=== PATIENT | female | born 1965 | race Hispanic/Latino ===

== ENCOUNTER 2018-09-01 04:29 | Emergency (ER) | payer MEDICARE ==
[~2018-09-01 04:29] MED LIST: AMIO200T5 PO; COLC0.6T67 PO; GABA-531 PO; HYDR-4068 PO; POLYETHYLENE GLYCOL PO; TIZA4CAP8 PO
== END 2018-09-01 04:58 | disposition left against medical advice (07) ==
LOC: EDH 04:29

== ENCOUNTER 2018-10-30 20:32 | Inpatient (IN) | payer MEDICARE | END 2018-11-01 18:25 | disposition home or self-care (01) | LOC: EDH 20:32 → EDHIP 10-31 01:00 → 4CH 10-31 08:15 | DX: I48.0 Paroxysmal atrial fibrillation (principal); I31.4 Cardiac tamponade; M79.7 Fibromyalgia ==

== ENCOUNTER 2018-11-25 20:43 | Emergency (ER) | payer MEDICARE ==
[~2018-11-25 20:43] MED LIST changes: -AMIO200T5 PO; -COLC0.6T67 PO; -GABA-531 PO; +METO25TA6 PO; +MODA200T48 PO; -POLYETHYLENE GLYCOL PO; -TIZA4CAP8 PO
[2018-11-25 21:16] LABS: BASOPHILS % (AUTO) 0.4 % (0.0-5.0); EOSINOPHILS % (AUTO) 0.2 % (0.0-8.0); HEMATOCRIT 36.9 % (36-48); MEAN CORPUSCULAR HEMOGLOBIN 33.3 pg (27.0-33.0); MEAN CORPUSCULAR HGB CONC 34.4 g/dL (32.0-36.0); MONOCYTES % (AUTO) 4.1 % (3.0-13.0); NEUTROPHILS % (AUTO) 84.3 % (40.0-77.0); PLATELET COUNT (AUTO) 231 K/uL (130-400); RED BLOOD CELL COUNT(AUTO) 3.81 MIL/uL (4.00-5.50); RED CELL DISTRIBUTION WIDTH 11.7 % (11.0-15.5); WHITE BLOOD COUNT (AUTO) 9.3 K/uL (4.8-10.8)
[2018-11-25 21:23] LABS: POTASSIUM 3.6 mmol/L (3.5-5.1)
[2018-11-25 21:27] LABS: ALBUMIN 3.6 g/dL (3.5-5.0); BILIRUBIN,TOTAL 0.2 mg/dL (0.2-1.0); TOTAL PROTEIN, SERUM 6.9 g/dL (6.0-8.3)
[2018-11-25] MEDS ORDERED: DILTIAZEM HCL 125 MG/25 ML VIAL IV ONE (21:36)
[2018-11-25] MEDS ORDERED: DILTIAZEM HCL 5 MG/ML 10 ML VIAL IV ONE (21:37)
[2018-11-25 22:06] LABS: AMPHET/METH SCREEN,URINE NEGATIVE (NEGATIVE); BARBITURATE SCREEN, URINE NEGATIVE (NEGATIVE); BENZODIAZEPINES SCREEN,URINE NEGATIVE (NEGATIVE); CANNABINOID SCREEN,URINE NEGATIVE (NEGATIVE); COCAINE SCREEN,URINE NEGATIVE (NEGATIVE); OPIATE SCREEN,URINE POSITIVE (NEGATIVE); PHENCYCLIDINE SCREEN,URINE NEGATIVE (NEGATIVE)
== END 2018-11-25 23:17 | disposition home or self-care (01) ==
LOC: EDH 20:43
DX: I48.0 Paroxysmal atrial fibrillation (principal); Z95.0 Presence of cardiac pacemaker; Z90.710 Acquired absence of both cervix and uterus; Z98.890 Other specified postprocedural states
CPT/HCPCS: 36415; 71045; 80053; 80305; 82550; 83735; 83880; 84484; 85025; 93005 ×2; 96374; 99285; J3490

== ENCOUNTER 2019-01-24 09:27 | Observation (INO) | payer MEDICARE ==
[2019-01-22 15:11] VITALS: BP 120/70
[2019-01-22 15:13] LABS: BASOPHILS % (AUTO) 0.7 % (0.0-5.0); HEMATOCRIT 37.3 % (36-48); LYMPHOCYTES % (AUTO) 22.9 % (21.0-51.0); MEAN CORPUSCULAR HEMOGLOBIN 32.2 pg (27.0-33.0); MEAN CORPUSCULAR HGB CONC 33.4 g/dL (32.0-36.0); MEAN CORPUSCULAR VOLUME 96.3 fL (79-99); NEUTROPHILS % (AUTO) 70.4 % (40.0-77.0); PLATELET COUNT (AUTO) 462 K/uL (130-400); RED BLOOD CELL COUNT(AUTO) 3.87 MIL/uL (4.00-5.50); RED CELL DISTRIBUTION WIDTH 12.1 % (11.0-15.5); WHITE BLOOD COUNT (AUTO) 7.4 K/uL (4.8-10.8)
[2019-01-22 15:26] LABS: CREATININE 0.8 mg/dL (0.5-1.5); POTASSIUM 4.1 mmol/L (3.5-5.1)
[2019-01-22 15:30] LABS: INR 0.96 (0.85-1.15); PARTIAL THROMBOPLASTIN TIME 33.2 SEC (26.3-35.5); PROTHROMBIN TIME 10.1 SEC (9.6-11.6)
--- NOTE | 2019-01-22 16:39 | NUR ---
HYDROCODONE PT CONCERNED ABOUT BACK PAIN. USES HYDROCODONE EVERY 4 HOURS[address] INFORMED FANI HE [address] DR. LAYTON OFFICE. PER DR. GUSTAFOSN, PT CAN USE HYDROCODONE SHE NORMALLY TAKES AT HOME. CALLED AND INFORMED PT. VERBALIZED UNDERSTANDING.
--- NOTE | 2019-01-23 11:07 | NUR ---
PLATELETS INFORMED DR. GUSTAFSON OF ABNORMAL PLATELETS. NO ORDERS RECEIVED. PROCEED WITH PLANNED PROCEDURE.
[2019-01-24] VITALS (10 sets, daily range): BP systolic 91–119; BP diastolic 60–78
[~2019-01-24] VITALS: Ht 172.7 cm; Wt 69.7 kg
[2019-01-24] MEDS: CEFAZOLIN SODIUM 1 GM VIAL IVP SCH (05:00)
[~2019-01-24 09:27] MED LIST changes: +DICL1ADH12 TD; -METO25TA6 PO; -MODA200T48 PO
[2019-01-24] MEDS ORDERED: SODIUM CHLORIDE 0.9% 1000ML 1,000 ML IV ONE (10:57)
--- NOTE | 2019-01-24 11:50 | NUR ---
PT TRANSFERRED: PATIENT TAKEN TO PLANT ACCOUNTANT VIA STRETCHER BY ROCKY PARSON
[2019-01-24] MEDS ORDERED: BUPIVACAINE/PF 0.25% 30ML VIAL IJ ONE (11:53)
[2019-01-24] MEDS ORDERED: CEFAZOLIN SODIUM 1 GM VIAL ONE (11:53)
[2019-01-24] MEDS ORDERED: MEPERIDINE-PF 25 MG/ML SYG ONE ×6 (11:53→13:20)
[2019-01-24] MEDS ORDERED: MIDAZOLAM HCL 1 MG/ML 2ML VIAL ONE ×6 (11:54→13:21)
[2019-01-24] MEDS ORDERED: LIDOCAINE HCL 1% MDV 50ML VIAL ONE (11:54)
[2019-01-24] MEDS ORDERED: IODIXANOL 320 MG/ML 100 ML VIAL ONE (12:41)
[2019-01-24] MEDS ORDERED: HYDROCODONE/ACETAMINOPHEN 10/325 MG TAB PO PRN ×2 (14:00→14:45)
[2019-01-24] MEDS ORDERED: METO-408 PO (14:06)
--- NOTE | 2019-01-24 14:25 | NUR ---
POST PROCEDURE RECEIVED PT FROM RELIEF DOCKING MASTER, IN SEMI LYONS'S POSITION, A&OX3, CALM COOPERATIVE AND DOES NOT APPEAR TO BE IN ANY DISTRESS NOR ANY NEURO DEFICITS PRESENT. RIGHT SHOULDER DRESSING DRY, INTACT AND SECURED WITH ARM SLING. PULSES AND SHAREPOINT DEVELOPER STRENGTH STRONG TO ALL EXTREMITIES. PT DOES C/O CHRONIC BACK PAIN AND INCISIONAL DISCOMFORT, BOTH 6/10, PT ON BEDREST FOR 4 HOURS. CALL LIGHT WITHIN REACH, FAMILY AT BEDSIDE.
--- NOTE | 2019-01-24 19:30 | NUR ---
Received report from nurse Posey,pt S/P PPM incision site is clean dry and intact with Right arm sling on.Pt is educated regarding right arm precaution.
[2019-01-24] MEDS: HYDROCODONE/ACETAMINOPHEN 10/325 MG TAB PO PRN (20:13)
[2019-01-25 03:00] VITALS: BP 126/78
[2019-01-25] MEDS: CEFAZOLIN SODIUM 1 GM VIAL IVP SCH (04:40)
--- NOTE | 2019-01-25 07:30 | NUR ---
ASSESSMENT ENCOUNTERED PT ASLEEP BUT AROUSEABLE, A&OX3, CALM COOPERATIVE AND DOES NOT APPEAR TO BE IN ANY DISTRESS NOR ANY NEURO DEFICITS PRESENT. PT DOES C/O INCISIONAL PAIN AND CHRONIC BACK PAIN, RT SHOULDER DRESSING DRY, INTACT AND SECURED WITH ARM SLING. PULSES AND TURKISH RUBBER STRENGTH STRONG WITH ALL EXTREMITIES. PT IS AMBULATORY, GAIT SLOW BUT STEADY WITH STAND BY ASSIST. CALL LIGHT WITHIN REACH, FAMILY AT BEDSIDE.
[2019-01-25 07:50] VITALS: BP 101/59
[2019-01-25] MEDS ORDERED: DICLOFENAC PO PRN (09:00)
[2019-01-25] MEDS: HYDROCODONE/ACETAMINOPHEN 10/325 MG TAB PO PRN (10:50)
[2019-01-25 11:49] VITALS: BP 115/76
--- NOTE | 2019-01-25 15:00 | NUR ---
DISCHARGE INSTRUCTIONS GIVEN, PIV REMOVED AND INTACT, DISCHARGED HOME TO FAMILY VEHICLE VIA WHEELCHAIR.
== END 2019-01-25 15:36 | disposition home or self-care (01) ==
LOC: DAH 09:27 → DAHIP 09:28 → 2AH 14:31
PROVIDERS: ADMIT Internal Medicine; ATTEND Internal Medicine
DX: I49.5 Sick sinus syndrome (principal); I48.0 Paroxysmal atrial fibrillation; I42.8 Other cardiomyopathies; I50.22 Chronic systolic (congestive) heart failure; Z79.899 Other long term (current) drug therapy
CPT/HCPCS: 33208; 36415; 71045; 80048; 85025; 85610; 85730; A4606; C1785; C1898 ×2; G0378 ×26; J0690; J2175 ×5; J2250 ×5; J3490 ×2; J7030; Q9967; 99156; 99157

== ENCOUNTER 2019-04-10 23:24 | Emergency (ER) | payer MEDICARE ==
[~2019-04-10 23:24] MED LIST changes: +METO-408 PO
[2019-04-10] MEDS ORDERED: KETOROLAC TROMETHAMINE 60 MG/2 ML VIAL ONE (23:43)
[2019-04-10] MEDS ORDERED: DIAZEPAM 5 MG TABLET ONE (23:44)
== END 2019-04-11 00:26 | disposition home or self-care (01) ==
LOC: EDH 23:24
DX: M54.16 Radiculopathy, lumbar region (principal); I48.91 Unspecified atrial fibrillation; Z90.710 Acquired absence of both cervix and uterus; Z95.1 Presence of aortocoronary bypass graft
CPT/HCPCS: 96372; 99283; J1885

== ENCOUNTER 2019-09-19 21:15 | Emergency (ER) | payer MEDICARE | END 2019-09-19 21:27 | disposition left against medical advice (07) | LOC: EDH 21:15 | DX: G89.29 Other chronic pain (principal); M79.7 Fibromyalgia; I48.91 Unspecified atrial fibrillation; Z90.710 Acquired absence of both cervix and uterus; Z98.890 Other specified postprocedural states; Z53.21 Procedure and treatment not carried out due to patient leaving prior to being seen by health care provider ==

== ENCOUNTER 2021-10-24 05:59 | Day surgery (SDC) | payer MEDICARE ==
[2021-10-20 09:57] LABS: BASOPHILS % (AUTO) 0.4 % (0.0-5.0); EOSINOPHILS % (AUTO) 1.3 % (0.0-8.0); HEMATOCRIT 44.7 % (36-48); LYMPHOCYTES % (AUTO) 27.3 % (21.0-51.0); MEAN CORPUSCULAR HEMOGLOBIN 31.1 pg (27.0-33.0); MEAN CORPUSCULAR HGB CONC 33.8 g/dL (32.0-36.0); MEAN CORPUSCULAR VOLUME 92.2 fL (79-99); MONOCYTES % (AUTO) 4.4 % (3.0-13.0); NEUTROPHILS % (AUTO) 66.2 % (40.0-77.0); PLATELET COUNT (AUTO) 366 K/uL (130-400); RED BLOOD CELL COUNT(AUTO) 4.85 MIL/uL (4.00-5.50); RED CELL DISTRIBUTION WIDTH 12.2 % (11.0-15.5); WHITE BLOOD COUNT (AUTO) 9.5 K/uL (4.8-10.8)
[2021-10-20 10:03] LABS: APPEARANCE,URINE Clear (CLEAR); BILIRUBIN,URINE Negative (NEGATIVE); COLOR,URINE Yellow (YELLOW); GLUCOSE, URINE (UA) Negative (NEGATIVE); KETONES,URINE Negative (NEGATIVE); LEUKOCYTE ESTERASE ,URINE Trace (NEGATIVE); NITRATE,URINE Negative (NEGATIVE); OCCULT BLOOD,URINE Negative (NEGATIVE); PH,URINE 5.5 (5.0-8.0); PROTEIN,URINE Negative (NEGATIVE); UROBILINOGEN,URINE 0.2 mg/dL (0.2-1.0)
[2021-10-20 10:06] LABS: POTASSIUM 3.8 mmol/L (3.5-5.1)
[2021-10-20 10:07] LABS: PROTHROMBIN TIME 10.9 SEC (9.6-11.6)
[2021-10-20 10:09] LABS: PARTIAL THROMBOPLASTIN TIME 29.5 SEC (26.3-35.5)
[2021-10-20 10:30] LABS: BACTERIA,URINE Rare /HPF (None Seen); RBC,URINE None Seen /HPF (0-1); WBC,URINE 0-1 /HPF (0-1)
[2021-10-20 10:31] LABS: SQUAMOUS EPITHELIAL CELL,UR 0-2 /HPF (0-2)
[2021-10-21 12:24] VITALS: BP 147/79
[2021-10-24] VITALS (9 sets, daily range): BP systolic 102–123; BP diastolic 67–81
[~2021-10-24] VITALS: Ht 172.7 cm; Wt 77.5 kg
[~2021-10-24 05:59] MED LIST changes: +ASPI-1443 PO; -DICL1ADH12 TD; -HYDR-4068 PO; +HYDR8TAB18 PO; +LOSA25TA41 PO
[2021-10-24] MEDS ORDERED: 0.9%NACL 1000ML 1,000 ML IV ONE (06:21)
[2021-10-24] MEDS ORDERED: BIVALIRUDIN 250 MG/VIAL IV ONE (07:15)
[2021-10-24] MEDS ORDERED: NITROGLYCERIN 50MG VIAL ONE ×2 (07:15→08:59)
[2021-10-24] MEDS ORDERED: HEPARIN 10,000 UNIT/10ML (1,000 UNIT/ML) VIAL ONE ×2 (07:15→08:59)
[2021-10-24] MEDS ORDERED: FENTANYL CITRATE PF 50 MCG/1 ML 2ML VIAL ONE ×2 (07:16→09:00)
[2021-10-24] MEDS ORDERED: IOHEXOL-350 50ML VIAL IV ONE (07:16)
[2021-10-24] MEDS ORDERED: LIDOCAINE HCL 400MG/20ML VIAL ONE ×2 (07:16→09:00)
[2021-10-24] MEDS ORDERED: MIDAZOLAM HCL 1 MG/ML 2ML VIAL ONE ×3 (07:16→08:59)
[2021-10-24] MEDS ORDERED: IOHEXOL-350 75 ML VIAL IV ONE (07:18)
[2021-10-24] MEDS ORDERED: NICARDIPINE 25MG INJ IV ONE ×2 (07:30→08:59)
[2021-10-24] MEDS ORDERED: 0.9%NACL 1000ML 1,000 ML IV SCH ×2 (08:00→09:00)
[2021-10-24] MEDS ORDERED: IODIXANOL 320 MG/ML 100 ML VIAL ONE (08:59)
[2021-10-24] MEDS ORDERED: GLUCAGON 1MG KIT 1 MG ML IM PRN (09:00)
[2021-10-24] MEDS ORDERED: DEXTROSE 50%-WATER 50 ML DISP.SYRIN IV PRN (09:00)
[2021-10-24] MEDS ORDERED: HYDRALAZINE 20MG/ML VIAL ONE (09:26)
[2021-10-24] MEDS ORDERED: CLOPIDOGREL 300MG TAB ONE (10:03)
[2021-10-24] MEDS ORDERED: ASPIRIN 325MG EC TAB PO ONE (10:03)
[2021-10-24] MEDS ORDERED: KETOROLAC 15MG/ML VIAL (15MG/ML) IV ONE (12:00)
[2021-10-24] MEDS ORDERED: KETOROLAC 15MG/ML VIAL (15MG/ML) ONE (12:03)
== END 2021-10-24 12:35 | disposition home or self-care (01) ==
LOC: DAH 05:59
PROVIDERS: ATTEND Internal Medicine Cardiovascular Disease
DX: I25.119 Atherosclerotic heart disease of native coronary artery with unspecified angina pectoris (principal); I10 Essential (primary) hypertension; I48.0 Paroxysmal atrial fibrillation; I51.9 Heart disease, unspecified; Z95.0 Presence of cardiac pacemaker; Z79.01 Long term (current) use of anticoagulants; Z79.899 Other long term (current) drug therapy
CPT/HCPCS: 36415; 71045; 80048; 81001; 85025; 85610; 85730; 93005; 93454; A4215; A4216; A4221; A4222; A4223 ×3; A4606; A4663; C1760; C1769; C1894 ×3; J1644 ×4; J1885; J2250 ×2; J3010; J3490 ×5; J7030 ×2; Q9965; Q9967 ×2; 99156; 99157; J0360; J0583